=== PATIENT | female | born 1985 | race Caucasian/White ===

== ENCOUNTER 2021-08-30 23:45 | Emergency (ER) | payer BC, MEDICAID ==
[~2021-08-30] VITALS: Ht 167.6 cm; Wt 78.9 kg
[2021-08-30 23:54] VITALS: BP 143/96
--- NOTE | 2021-08-30 23:59 | NUR ---
PT TO THE BATHROOM FOR URINE COLLECTION
[2021-08-31] MEDS ORDERED: ONDANSETRON 4 MG ODT PO ONE (03:05)
[2021-08-31] MEDS ORDERED: KETOROLAC 60 MG/2 ML VIAL IM ONE (03:05)
--- NOTE | 2021-08-31 03:26 | NUR ---
PATIENT PRESENTS TO ED WITH HEADACHE X 3 DAYS . PT STATES SHE TOOK ASPIRIN AT 10:00PM AND BECAME NAUSEATED. DENIES V/D; SKIN IS PINK/WARM/DRY; AAOX4 WITH EVEN AND STEADY GAIT; PT DENIES ANY FEVER, CP, SOB, OR COUGH AT THIS TIME; PATIENT STATES PAIN OF 5/10 AT THIS TIME; VSS; PATIENT POSITIONED FOR COMFORT; HOB ELEVATED; BEDRAILS UP X2; BED DOWN. ER MD MADE AWARE OF PT STATUS.
[2021-08-31] MEDS ORDERED: ONDA8TAB87 PO (04:01)
[2021-08-31] MEDS ORDERED: ACET-8386 PO (04:01)
[2021-08-31] MEDS ORDERED: IBUP-2213 PO (04:01)
[2021-08-31 04:10] VITALS: BP 138/90
--- NOTE | 2021-08-31 04:10 | NUR ---
Patient discharged with v/s stable. Written and verbal after care instructions given and explained. Patient alert, oriented and verbalized understanding of instructions. Ambulatory with steady gait. All questions addressed prior to discharge. ID band removed. Patient advised to follow up with PMD. Rx of NORCO 5/325, IBUPROFEN & ZOFRAN given. Patient educated on indication of medication including possible reaction and side effects. Opportunity to ask questions provided and answered.
== END 2021-08-31 04:10 | disposition home or self-care (01) ==
LOC: MED 23:45
DX: R51.9 Headache, unspecified (principal); R06.02 Shortness of breath
CPT/HCPCS: 81002; 81025; 96372; 99283; J1885; Q0162

== ENCOUNTER 2023-07-27 20:51 | Emergency (ER) | payer BC, OTHER ==
[~2023-07-27] VITALS: Ht 167.6 cm; Wt 77.1 kg
[~2023-07-27 20:51] MED LIST: ACET-8905 PO; IBUP-2213 PO; ONDA8TAB87 PO
[2023-07-27 21:27] VITALS: BP 141/99; PULSE 82; RESP 16; TEMP 98.4; O2SAT 97
[2023-07-27 23:09] LABS: BASOPHILS # (AUTO) 0.1 K/uL (0.00-0.22); BASOPHILS % (AUTO) 0.8 % (0.0-2.0); EOSINOPHILS # (AUTO) 0.2 K/uL (0-0.4); EOSINOPHILS % (AUTO) 2.2 % (0.0-4.0); HEMATOCRIT 37.4 % (36-48); LYMPHOCYTES # (AUTO) 2.9 K/uL (2.5-16.5); LYMPHOCYTES % (AUTO) 37.2 % (20.5-51.1); MEAN CORPUSCULAR HEMOGLOBIN 31 pg (27-31); MEAN CORPUSCULAR HGB CONC 35 g/dL (33-37); MEAN CORPUSCULAR VOLUME 87.9 fL (80-94); MONOCYTES # (AUTO) 0.4 K/uL (0.8-1.0); MONOCYTES % (AUTO) 5.6 % (1.7-9.3); NEUTROPHILS # (AUTO) 4.3 K/uL (1.8-7.7); NEUTROPHILS % (AUTO) 54.2 % (42.2-75.2); PLATELET COUNT (AUTO) 329 K/uL (140-450); RED BLOOD CELL COUNT(AUTO) 4.25 MIL/uL (4.20-5.40); RED CELL DISTRIBUTION WIDTH 13.3 % (11.6-13.7); WHITE BLOOD COUNT (AUTO) 7.9 K/uL (4.8-10.8)
[2023-07-27 23:12] LABS: APPEARANCE,URINE CLEAR (CLEAR); BILIRUBIN,URINE NEGATIVE (NEGATIVE); BLOOD, URINE 1+ (NEGATIVE); COLOR,URINE YELLOW (YELLOW); LEUKOCYTE ESTERASE ,URINE NEGATIVE (NEGATIVE); NITRITE, URINE NEGATIVE (NEGATIVE); PH,URINE 6.5 (5.0-9.0); PROTEIN,URINE NEGATIVE (NEGATIVE); UGLUCOSE NEGATIVE (NEGATIVE); UROBILINOGEN,URINE 0.2 EU/dL (0.2 - 1)
[2023-07-27 23:24] LABS: BACTERIA,URINE FEW /HPF (None Seen); MUCUS,URINE None Seen /LPF (None Seen); RBC,URINE 0-5 /HPF (0-5); SQUAMOUS EPITHELIAL CELL,UR 0-3 (FEW) /LPF (0-3 (FEW)); WBC,URINE 0-5 /HPF (0-5)
[2023-07-27 23:25] LABS: ALBUMIN 3.9 g/dL (3.4-5.0); ANION GAP 13.1 (8-16); CARBON DIOXIDE 26.7 mmol/L (21-32); CREATININE 0.5 mg/dL (0.6-1.3); POTASSIUM 3.8 mmol/L (3.5-5.1); TOTAL BILIRUBIN 0.3 mg/dL (0.0-1.0); TOTAL PROTEIN, SERUM 9.2 g/dL (6.4-8.2)
[2023-07-28] MEDS ORDERED: DICYCLOMINE HCL LIQUID 10 MG/5 ML UDC ONE (00:01)
[2023-07-28] MEDS ORDERED: ALUMINUM HYD/MAG/SIMETHICONE 30 ML UDC ONE (00:01)
[2023-07-28] MEDS: DICYCLOMINE HCL LIQUID 20 MG, ALUMINUM HYD/MAG/SIMETHICONE 30 ML, LIDOCAINE VISCOUS 2% ... PO ONE (00:06)
[2023-07-28] MEDS: FAMOTIDINE 20 MG TAB PO ONE (00:07)
[2023-07-28] MEDS ORDERED: SUCR1TAB35 PO (00:44)
[2023-07-28] MEDS ORDERED: FAMO-90 PO (00:44)
[2023-07-28] MEDS ORDERED: OMEP20EC11 PO (00:44)
[2023-07-28 01:39] VITALS: BP 131/77; PULSE 80; RESP 16; TEMP 98.4; O2SAT 98
== END 2023-07-28 01:45 | disposition home or self-care (01) ==
LOC: MED 20:51
DX: K29.70 Gastritis, unspecified, without bleeding (principal); Z79.899 Other long term (current) drug therapy
CPT/HCPCS: 36415; 80053; 81001; 81025; 83690; 85025; 99283